=== PATIENT | male | born 1990 | race Hispanic/Latino ===

== ENCOUNTER 2017-03-17 08:25 | Outpatient (CLI) | payer OTHER ==
--- NOTE | 2017-03-17 11:45 | Ultrasound Report ---
ABDOMINAL ULTRASOUND: 03/17/17 08:25:00 CLINICAL: Fatty liver. Elevated liver function tests. FINDINGS: High-resolution ultrasound demonstrated a diffusely echogenic liver with significant attenuation of the sound. The liver margins are poorly defined and the hepatic vasculature is poorly defined. No obvious liver enlargement. Normally distended gallbladder with no stones. The gall bladder wall measures 1.3 mm thick. The common bile duct measures 3.3 mm diameter. The pancreas is not well imaged due to bowel gas and body habitus. Normal abdominal aorta. A normal spleen measures 10.8cm. Normal kidneys with normal echogenicity and normal non-dilated renal collecting systems and ureters. The right kidney measures 11.7 x 5.3 x 4.6 cm. The left kidney measures 9.9 x 5.8 x 5.0cm. No renal mass or calculus. No ascites or mass. IMPRESSION: Marked hepatic steatosis. No liver mass identified. No cholelithiasis.
== END 2017-03-17 08:26 | disposition home or self-care (01) ==
LOC: SPVWC 08:25
PROVIDERS: ATTEND Family Medicine
DX: K76.0 Fatty (change of) liver, not elsewhere classified (principal); R94.5 Abnormal results of liver function studies
CPT/HCPCS: 76700